=== PATIENT | female | born 1955 | race Asian ===

== ENCOUNTER 2016-12-22 15:45 | Emergency (ER) | payer OTHER ==
[~2016-12-22] VITALS: Ht 160 cm; Wt 50.0 kg
[2016-12-22 15:45] VITALS: Ht 160 cm; Wt 50.0 kg
[~2016-12-22 15:45] MED LIST: CA CHLORIDE 10% 10 ML SYRINGE ONE; EPINEPHrine 0.1 MG/ML SYG ONE; NA BICARBONATE 8.4% 50 ML SYG ONE
--- NOTE | 2016-12-22 19:00 | ERA ---
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 The patient was diagnosed in September 2016. She is not currently undergoing chemotherapy as she refused this treatment according to her son. The patient had awoke at 4 AM this morning roughly 15 hours prior to arrival and complained of generalized myalgias. The son indicates that her found her lying supine on the bathroom floor, unresponsive just prior to arrival. The phone 911 immediately when he found the patient on the floor at 1532 and when EMS arrived they indicated that the patient was in pulseless electrical activity with agonal respirations. They secured the airway temporarily with a [place]. They established IV access in the left tibia with an IO. They had obtained a blood glucose which was 25 and administered an amp of D50. The patient had received 2 mg of epinephrine and bruit. At 1525 she had return of spontaneous circulation. However just prior to arrival the patient again became pulseless and asystolic. ROS All systems reviewed and are negative except as per history of present illness. PMhx/Soc Hx Miscellaneous Medical Probl: Yes (end stage cervical cancer, Terminal ) Hx Alcohol Use: No Hx Substance Use: No Hx Tobacco Use: No Smoking Status: Never smoker Physical Exam Vitals Vital Signs Date Time Temp Pulse Resp B/P Pulse Ox O2 Delivery O2 Flow Rate FiO2 12/22/16 15:45 Bag Valve Mask 15 12/22/16 15:45 Bag Valve Mask 15.0 12/22/16 15:45 98.6 0 0 100 Physical Exam Constitutional:Well-developed. Unresponsive female. HEENT:Normocephalic. Atraumatic.Pupils were fixed and dilated at 5 mm. Gastric contents present within the oropharynx and Ters fissure airway intact.No tonsillar exudates. Neck: No nuchal rigidity. No lymphadenopathy. No posterior cervical spine tenderness or step-offs. Respiratory: No spontaneous respiratory effort. Transmitted breath sounds were heard bilaterally with bag mask ventilation Cardiovascular: No cardiac activity appreciated on auscultation. No murmurs or rubs. GI: Abdomen distended with positive fluid thrill with tense ascites. Muscle skeletal: No movement of the upper or lower extremities bilaterally Skin: Cool to the touch. Molted skin color NEURO: GCS was 3. Procedures/MDM This patient presented to the emergency department in cardiac arrest and ACLS protocol was followed. The patient had an IO access that was established and working properly. The patient was immediately placed on a playground monitor continuous pulse oximetry and the [place] airway was replaced by myself. A definitive airway using a 7.50 endotracheal tube is seen in past going through the cords myself. The patient had gastric contents present in the oropharynx with concern for aspiration. The tube was confirmed in good placement with equal symmetrical breath sounds heard bilaterally and condensation seen within the tube. The patient had continued CPR, an Accu-Chek was performed and normal. The patient received an amp of bicarb, calcium chloride. The patient had an episode of ventricular tachycardia and given that she was unstable and underwent cardioversion. When the patient arrived at the door it was 1538 when we initiated ACLS protocol. At 1601 the patient's and son were at the bedside. I explained the grave prognosis to the family as she did not have return of spontaneous circulation despite the above treatment. I placed a cardiac ultrasound and there is no evidence of pericardial effusion. At 1606 a pulse check was performed and the patient had no pulses but remains with a heart rate of 123 on the playground monitor that likely was residual effects from the epinephrine. The patient had no spontaneous respiratory effort, no cardiac activity seen on ultrasound, pupils are fixed and dilated. Time of was called by myself at 1615 with both the son and at bedside. 1628 the corner called to report. Social support was provided for the family. Critical Care: Time: 50 minutes Treatments/Evaluations: Close monitoring and treatment of unstable vital signs, cardiorespiratory, and neurologic status, while maintaining tight balance of fluid, respiratory, and cardiac interventions. Time does not include performing any of the above billable procedures. The son and father remained at the bedside with the patient. They had asked if we could leave the patient in the room until the patient's daughter had arrived. I continue to provide support for the family throughout this time. At 1900 the daughter had not yet arrived. The family had no further questions at this time. Departure Diagnosis: Primary Impression: Cardiopulmonary arrest Condition: Serious FREDASHIRA CACERES Dec 22, 2016 18:58
== END 2016-12-22 21:25 | disposition expired ==
LOC: E/R 15:45
DX: I46.9 Cardiac arrest, cause unspecified (principal); R40.2112 Coma scale, eyes open, never, at arrival to emergency department; R40.2212 Coma scale, best verbal response, none, at arrival to emergency department; R40.2312 Coma scale, best motor response, none, at arrival to emergency department; Z85.43 Personal history of malignant neoplasm of ovary; Z85.05 Personal history of malignant neoplasm of liver
CPT/HCPCS: 31500; 92950; J0171; Z7502; Z7610